=== PATIENT | female | born 1980 | race Caucasian/White ===

== ENCOUNTER 2022-08-07 10:57 | Emergency (ER) | payer MEDICAID ==
[~2022-08-07] VITALS: Ht 175.3 cm; Wt 122.5 kg
[2022-08-07 11:00] VITALS: BP_SYST 127
[2022-08-07] MEDS ORDERED: MAG HYDROX/AL HYDROX/SIMETH 30 ML, LIDOCAINE VISCOUS 2% 15ML (PO) 15 ML, DICYCLOMINE HC... PO ONE ×3 (12:00)
[2022-08-07] MEDS ORDERED: ONDANSETRON 4 MG ODT TAB PO ONE (12:15)
[2022-08-07 12:42] LABS: BASOPHILS # (AUTO) 0.1 K/uL (0.0-0.2); EOSINOPHILS # (AUTO) 0.1 K/uL (0.0-0.4); EOSINOPHILS % (AUTO) 1.2 % (0.0-4.0); HEMATOCRIT 43.9 % (36-48); LYMPHOCYTES # (AUTO) 1.7 K/uL (1.0-5.5); LYMPHOCYTES % (AUTO) 22.4 % (20.5-51.5); MEAN CORPUSCULAR HEMOGLOBIN 31 pg (27-31); MEAN CORPUSCULAR HGB CONC 34 % (32-36); MEAN CORPUSCULAR VOLUME 90 fL (79.0-98.0); MONOCYTES # (AUTO) 0.4 K/uL (0.0-1.0); NEUTROPHILS # (AUTO) 5.2 K/uL (1.8-7.7); NEUTROPHILS % (AUTO) 70.4 % (40.0-70.0); PLATELET COUNT (AUTO) 286 K/uL (130-430); RED BLOOD CELL COUNT(AUTO) 4.87 MIL/uL (4.2-6.2); RED CELL DISTRIBUTION WIDTH 12.8 % (9.0-15.0); WHITE BLOOD COUNT (AUTO) 7.5 K/uL (4.8-10.8)
[2022-08-07 13:05] VITALS: BP_SYST 127
[2022-08-07] MEDS ORDERED: OMEP40CA20 PO (13:10)
[2022-08-07] MEDS ORDERED: ONDA-8 TL (13:10)
[2022-08-07 13:17] LABS: CALCIUM 9.2 mg/dL (8.4-11.0); CREATININE 0.73 mg/dL (0.55-1.30)
[2022-08-07 13:21] LABS: ALBUMIN 3.9 g/dL (3.4-4.8); TOTAL BILIRUBIN 0.5 mg/dL (0.0-1.0)
[2022-08-07] MEDS ORDERED: MAG-AL HYDROX/SIMETH 30 ML UDC ONE (14:20)
[2022-08-07] MEDS ORDERED: LIDOCAINE VISCOUS 2%, 15 ML UDC ONE (14:20)
[2022-08-07] MEDS ORDERED: DICYCLOMINE HCL 10 MG/5 ML SOLUTION ONE (14:20)
[2022-08-07] MEDS ORDERED: ONDANSETRON 4 MG ODT TAB ONE (14:23)
[2022-08-07 16:02] LABS: BILIRUBIN,URINE NEGATIVE (NEGATIVE); COLOR,URINE YELLOW (YELLOW); GLUCOSE,URINE NEGATIVE (NEGATIVE); KETONES,URINE NEGATIVE (NEGATIVE); LEUKOCYTE ESTERASE ,URINE 1+ (NEGATIVE); NITRITE, URINE NEGATIVE (NEGATIVE); PROTEIN URINE NEGATIVE (NEGATIVE); UROBILINOGEN,URINE 0.2 (0.2-1.0)
[2022-08-07 16:13] LABS: BLOOD, URINE TRACE (NEGATIVE); CLARITY/URINE HAZY (CLEAR)
[2022-08-07 16:16] LABS: BACTERIA,URINE FEW /HPF (None Seen); RBC,URINE 0-3 /HPF (0-3)
[2022-08-07 16:17] LABS: MUCUS,URINE 1+ /LPF (None Seen)
[2022-08-07] MEDS ORDERED: NITR-85 PO (16:18)
== END 2022-08-07 16:24 | disposition home or self-care (01) ==
LOC: SED 10:57
DX: K29.00 Acute gastritis without bleeding (principal); R10.12 Left upper quadrant pain; R11.0 Nausea; K21.9 Gastro-esophageal reflux disease without esophagitis; Z79.899 Other long term (current) drug therapy
CPT/HCPCS: 99284; 80053; 81000; 84702; 83690; 85025; 87086; 36415; 74021; 81025; Q0162; J2001